=== PATIENT | female | born 1990 | race Hispanic/Latino ===

== ENCOUNTER 2017-08-11 07:32 | Emergency (ER) | payer OTHER ==
[~2017-08-11] VITALS: Ht 165.1 cm; Wt 74.1 kg
[2017-08-11 08:22] LABS: HEMOGLOBIN 12.7 G/DL (11.9-15.5); MCH 29.7 PG (29.0-34.0); MCHC 34.3 G/DL (30.0-36.0); MCV 86.7 FL (83-99); PLATELET COUNT 159 K/uL (156-360); RBC DIS.WIDTH-CV 11.7 % (11.8-14.6); RBC DIS.WIDTH-SD 37.2 % (39-53); RED BLOOD COUNT 4.27 M/uL (3.80-5.20); WHITE BLOOD COUNT 7.2 K/uL (4.1-10.2)
[2017-08-11 08:46] LABS: ALBUMIN 4.3 g/dL (3.2-4.8)
[2017-08-11 08:47] LABS: CHLORIDE 105 mEq/L (99-109); POTASSIUM 4.2 mEq/L (3.7-5.4); SODIUM 138 mEq/L (136-147)
[2017-08-11 08:49] LABS: GLUCOSE 93 mg/dL (70-99); QUANTITATIVE HCG 14397.2 MIU/ML; TOTAL PROTEIN 7.7 g/dL (6.4-8.3)
[2017-08-11 08:51] LABS: TOTAL BILIRUBIN 0.8 mg/dL (0.0-1.0)
[2017-08-11 08:52] LABS: ALKALINE PHOSPHATASE 37 IU/L (3-129)
[2017-08-11 08:54] LABS: AST (GOT) 13 IU/L (2-34); UREA NITROGEN (BUN) 7 mg/dL (9-23)
[2017-08-11 08:56] LABS: ALT (GPT) 12 IU/L (3-49)
[2017-08-11 09:05] LABS: CREATININE 0.6 mg/dL (0.6-1.3); GFR ESTIMATE (CALCULATED) > 59 mL/min/
[2017-08-11 10:55] VITALS: BP 114/55
[2017-08-12] MEDS ORDERED: TYLENOL EXTRA500 MG PO (12:46)
[2017-08-12] MEDS ORDERED: MOTRIN400 MG PO (12:47)
[2017-08-12] MEDS ORDERED: NORCO 5/3251 TABLET PO (20:44)
== END 2017-08-11 11:11 | disposition home or self-care (01) ==
LOC: EME 07:32
PROVIDERS: Emergency Medicine Emergency Medical Services
DX: O02.1 Missed abortion (principal); R10.9 Unspecified abdominal pain
CPT/HCPCS: 76801; 80053; 84702; 85027; 86850; 86900; 86901; 99281; 99284

== ENCOUNTER 2017-08-12 17:34 | Emergency (ER) | payer OTHER ==
[~2017-08-12] VITALS: Ht 172.7 cm; Wt 73.5 kg
[~2017-08-12 17:34] MED LIST: MOTRIN400 MG PO; TYLENOL EXTRA500 MG PO
[2017-08-12 19:00] LABS: HEMATOCRIT 34.3 % (36.0-46.0); HEMOGLOBIN 11.9 G/DL (11.9-15.5); MCH 30.1 PG (29.0-34.0); MCHC 34.7 G/DL (30.0-36.0); MCV 86.6 FL (83-99); PLATELET COUNT 160 K/uL (156-360); RBC DIS.WIDTH-CV 11.7 % (11.8-14.6); RBC DIS.WIDTH-SD 37.3 % (39-53); RED BLOOD COUNT 3.96 M/uL (3.80-5.20); WHITE BLOOD COUNT 9.1 K/uL (4.1-10.2)
[2017-08-12] MEDS ORDERED: NORCO 5/3251 TABLET PO (20:44)
[2017-08-12 21:01] VITALS: BP 118/68
== END 2017-08-12 21:01 | disposition home or self-care (01) ==
LOC: EME 17:34
PROVIDERS: Physician Assistant
DX: O03.4 Incomplete spontaneous abortion without complication (principal); Z87.442 Personal history of urinary calculi
CPT/HCPCS: 84702; 85027; 99281; 99284; J2270